=== PATIENT | female | born 1955 | race Caucasian/White ===

== ENCOUNTER → 2017-05-14 | Outpatient (CLI) | payer BC ==
--- NOTE | 2017-05-14 12:47 | RADIOLOGY REPORT (SQ) ---
EXAM DESCRIPTION: MRI LUMBAR SPINE WITHOUT COMPLETED DATE/TIME: 05/14/2017 12:07 pm REASON FOR STUDY: LUMBAR RADICULOPATHY (M54.17) M54.17 RADICULOPATHY, LUMBOSACRAL REGION COMPARISON: 01/11/2016. TECHNIQUE: Sagittal and Axial imaging includes T1, T2, STIR and gradient echo sequences. Coronal T2/ HASTE imaging. LIMITATIONS: None. FINDINGS: VISUALIZED UPPER ABDOMEN: Limited evaluation. No acute or suspicious findings suggested. SEGMENTATION: No transitional anatomy. The lowest well-developed disc space is labeled L5-S1. ALIGNMENT: Scoliosis, convex to the left. VERTEBRAE: Intact. BONE MARROW: Normal. No marrow replacement. Reactive endplate signal change at L2-L3. DISC SIGNAL: Decreased height and signal particularly in the lower thoracic and upper lumbar spine. POSTERIOR ELEMENTS: Generally intact. No pars defect evident. HARDWARE: None in the spine. CORD AND CONUS: Normal in size and signal intensity. Conus at the appropriate level. SOFT TISSUES: No aortic aneurysm seen. No bulky retroperitoneal adenopathy or mass. No paraspinal mas s or fluid. L1-L2: Mild diffuse posterior disc bulge and mild facet arthropathy. No significant spinal stenosis. Mild exit foraminal stenosis, worse on the right. L2-L3: Mild diffuse posterior bulge. Mild facet arthropathy. No significant spinal stenosis. Moder ate right exit foraminal stenosis. L3-L4: No significant disc bulge. Moderate facet arthropathy. Mild -moderate spinal stenosis and mi ld exit foraminal stenosis. L4-L5: Mild diffuse posterior bulge. Severe facet arthropathy. Moderate to severe spinal stenosis. Mild exit foraminal stenosis. L5-S1: No significant spinal stenosis or exit foraminal stenosis. LOWER THORACIC: Incompletely imaged. Right paracentral disc protrusion at T10-T11 with mild spinal s tenosis. Left paracentral disc protrusion at T11-T12 with moderate spinal stenosis and impingement o f the distal cord. SACRUM: Visualized upper sacrum intact. OTHER: No other significant findings. IMPRESSION: 1. SCOLIOSIS. MULTILEVEL CHRONIC DEGENERATIVE CHANGES DESCRIBED ABOVE. 2. DEGENERATIVE DISC DISEASE IN THE LOWER THORACIC SPINE WITH STENOSIS AND IMPINGEMENT, INCOMPLETELY IMAGED. 3. LITTLE CHANGE FROM PRIOR STUDY. NO ACUTE FINDINGS. TECHNICAL DOCUMENTATION: JOB ID: [id number]- All Rights Reserved
== END ==
LOC: RAD 11:06
PROVIDERS: ATTEND Family Medicine
DX: M54.17 Radiculopathy, lumbosacral region (principal)
CPT/HCPCS: 72148

== ENCOUNTER → 2018-04-15 | Outpatient (CLI) | payer BC ==
--- NOTE | 2018-04-15 10:15 | RADIOLOGY REPORT (SQ) ---
EXAM DESCRIPTION: MRI LUMBAR SPINE COMBO COMPLETED DATE/TIME: 04/15/2018 9:49 am REASON FOR STUDY: LUMBAR RADICULAR PAIN M54.16 RADICULOPATHY, LUMBAR REGION COMPARISON: MRI LUMBAR SPINE 05/06/2017, 01/11/2016 TECHNIQUE: Sagittal and Axial imaging includes T1, T1 post gadolinium, T2, STIR and gradient echo se quences. Coronal T2/HASTE imaging. CONTRAST TYPE AND DOSE: 15 mL Prohance. RENAL FUNCTION: GFR > 60. LIMITATIONS: None. FINDINGS: VISUALIZED UPPER ABDOMEN: Limited evaluation. No acute or suspicious findings suggested. SEGMENTATION: No transitional anatomy. The lowest well-developed disc space is labeled L5-S1. ALIGNMENT: There is convex leftward lumbar curvature. Very mild anterolisthesis of L4 over L5. VERTEBRAE: No compression fractures in the lumbar spine BONE MARROW: Fatty reactive vertebral body endplate changes at L1-2 and L2-3 DISC SIGNAL: Diffuse decreased T2 weighted intervertebral disc signal, with disc space loss of height at the L1-2 and L2-3 levels POSTERIOR ELEMENTS: Generally intact. No pars defect evident. There is facet arthropathy with syno vial enhancement at L3-4, L4-5, and L5-S1. HARDWARE: None in the spine. CORD AND CONUS: Normal in size and signal intensity. Conus at the L1 level. No abnormal conus enhanc ement SOFT TISSUES: No aortic aneurysm seen. No bulky retroperitoneal adenopathy or mass. No paraspinal mas s or fluid. T11-12: A small left paracentral disc herniation is present at T11-12, partly effacing the ventral t hecal sac and abutting the distal thoracic cord without cord flattening or abnormal intrinsic cord si gnal. Mild central canal narrowing. Moderate left foraminal narrowing without definite exit nerve r oot impingement. No right foraminal stenosis. These findings are stable. T12-L1: No significant central or foraminal encroachment. Mild bilateral facet hypertrophy L1-L2: Asymmetric rightward disc space loss of height is present. There is broad diffuse posterior d isc bulge and bulky bilateral facet hypertrophy right greater than left. Borderline central canal na rrowing. Moderate to high-grade right foraminal narrowing. No significant left foraminal narrowing. L2-L3: Disc space loss of height with broad diffuse disc bulge and bony spurring right greater than l eft. Moderate bilateral facet and ligament hypertrophy. Mild central canal narrowing. There is hig h-grade right and mild left foraminal narrowing. L3-L4: Mild to moderate central canal stenosis results from broad diffuse posterior disc bulge and marisa ny spurring along with bulky bilateral facet and ligament hypertrophy. This is best shown on axial T 2 image 21. Mild bilateral foraminal narrowing is present without exiting L3 nerve root impingement. L4-L5: Minimal grade 1 anterolisthesis of L4 over L5, broad diffuse posterior disc bulge and bony spu rring and very bulky bilateral facet and ligament hypertrophy is present. This causes moderate centr al canal stenosis best shown on axial T2 image 28. There is mild bilateral foraminal narrowing witho ut exit nerve root impingement. L5-S1: Minimal posterior disc bulging, mild bilateral facet hypertrophy. No significant central sten osis. Mild right foraminal narrowing. High-grade left foraminal narrowing results from asymmetric l eft foraminal and lateral disc bulge and bulky bony spurring best shown on sagittal T2 image 12. The re is enhancement of the left L5 nerve root. SACRUM: Visualized upper sacrum intact. ENHANCEMENT: Enhancing left L5 nerve root. Advanced facet arthropathy at L3-4, L4-5, and L5-S1 with facet synovial enhancement. OTHER: No other significant findings. IMPRESSION: Central canal stenosis most pronounced at L3-4 and L4-5. Advanced bilateral facet arthropathy at L3-4, L4-5, and L5-S1. High-grade multilevel foraminal narrowing as above TECHNICAL DOCUMENTATION: JOB ID: [id number] [employer]- All Rights Reserved Reading location - IP/workstation name: [email or web address]
== END ==
LOC: RAD 08:14
PROVIDERS: ATTEND Nurse Practitioner Family
DX: M54.16 Radiculopathy, lumbar region (principal)
CPT/HCPCS: 82565; 72158; A9576

== ENCOUNTER → 2018-06-21 | Outpatient (CLI) | payer BC ==
--- NOTE | 2018-06-21 12:39 | RADIOLOGY REPORT (SQ) ---
EXAM DESCRIPTION: L SPINE FLEX/EXT ONLY COMPLETED DATE/TIME: 06/21/2018 12:26 pm REASON FOR STUDY: OTHER SPONDYLOSIS WITH RADICULOPATHY, LUMBOSACRAL REGION M47.27 OTHER SPONDYLOSIS WITH RADICULOPATHY, LUMBOSACRAL REG COMPARISON: None. NUMBER OF VIEWS: Two view. TECHNIQUE: Lateral views of the lumbar spine with flexion and extension. LIMITATIONS: None. FINDINGS: MINERALIZATION: Normal. SEGMENTATION: Normal. No transitional anatomy. ALIGNMENT: Grade 1 anterolisthesis of L 4 on L5. FLEXION/EXTENSION: No instability. VERTEBRAE: Maintained height. No fracture or worrisome bone lesion. DISCS: Multilevel disc space narrowing with osteophytes. POSTERIOR ELEMENTS: Pedicles and facets are intact. Facet arthropathy. No pars defect or posterior arch defects. HARDWARE: None in the spine. OTHER: No other significant finding. IMPRESSION: MULTILEVEL DEGENERATIVE CHANGES. GRADE 1 ANTEROLISTHESIS OF L 4 ON L5. NO INSTABILITY ON FLEXION/EXTENSION. TECHNICAL DOCUMENTATION: JOB ID: [id number] [employer]- All Rights Reserved Reading location - IP/workstation name: [email or web address]
--- NOTE | 2018-06-21 12:41 | RADIOLOGY REPORT (SQ) ---
EXAM DESCRIPTION: L SPINE 2 VIEWS COMPLETED DATE/TIME: 06/21/2018 12:26 pm REASON FOR STUDY: OTHER SPONDYLOSIS WITH RADICULOPATHY, LUMBOSACRAL REGION M47.27 OTHER SPONDYLOSIS WITH RADICULOPATHY, LUMBOSACRAL REG COMPARISON: None. NUMBER OF VIEWS: Two views. TECHNIQUE: AP and lateral radiographic images acquired of the lumbar spine. LIMITATIONS: None. FINDINGS: MINERALIZATION: Normal. SEGMENTATION: Normal. No transitional anatomy. ALIGNMENT: Marked scoliosis, convex to the left. Grade 1 anterolisthesis of L4 on L5. VERTEBRAE: Maintained height. No fracture or worrisome bone lesion. DISCS: Multilevel disc space narrowing with osteophytes. POSTERIOR ELEMENTS: Pedicles and facets are intact. Facet arthropathy. No pars defect or posterior arch defects. HARDWARE: None in the spine. PARASPINAL SOFT TISSUES: Normal. PELVIS: Intact as visualized. No fractures or worrisome bone lesions. SI joints intact. OTHER: No other significant finding. IMPRESSION: MULTILEVEL DEGENERATIVE DISC DISEASE AND FACET ARTHROPATHY. MARKED SCOLIOSIS. GRADE 1 ANTEROLISTHESIS OF L 4 ON L5. TECHNICAL DOCUMENTATION: JOB ID: [id number]- All Rights Reserved Reading location - IP/workstation name: [email or web address]
== END ==
LOC: RAD 11:49
PROVIDERS: ATTEND Physician Assistant
DX: M47.27 Other spondylosis with radiculopathy, lumbosacral region (principal)
CPT/HCPCS: 72100; 72120

== ENCOUNTER → 2018-11-01 | Outpatient (CLI) | payer BC ==
[2018-11-01 11:34] LABS: ALANINE AMINOTRANSFERASE 20 U/L (9-52); ALBUMIN 4.7 g/dL (3.5-5.0); ALKALINE PHOSPHATASE 110 U/L (38-126); ANION GAP 9 (5-19); ASPARTATE AMINO TRANSFERASE 27 U/L (14-36); BILIRUBIN,DIRECT 0.3 mg/dL (0.0-0.4); BILIRUBIN,TOTAL 0.4 mg/dL (0.2-1.3); BLOOD UREA NITROGEN 18 mg/dL (7-20); CARBON DIOXIDE 31 mmol/L (22-30); CHLORIDE 101 mmol/L (98-107); GLUCOSE 85 mg/dL (75-110); POTASSIUM 4.8 mmol/L (3.6-5.0); SODIUM 140.9 mmol/L (137-145); TOTAL PROTEIN 7.3 g/dL (6.3-8.2)
[2018-11-01 11:44] LABS: FREE T3 3.44 pg/mL (2.77-5.27); FREE T4 (FREE THYROXINE) 0.9 ng/dL (0.78-2.19)
[2018-11-01 11:58] LABS: THYROID STIMULATING HORMONE 2.19 uIU/mL (0.47-4.68)
== END ==
LOC: OD 09:23
PROVIDERS: ATTEND Family Medicine
DX: E78.5 Hyperlipidemia, unspecified (principal); E03.9 Hypothyroidism, unspecified; I10 Essential (primary) hypertension; E88.81 Metabolic syndrome and other insulin resistance
CPT/HCPCS: 36415; 80048; 80076; 83036; 84439; 84443; 84481

== ENCOUNTER 2018-11-03 10:20 | Day surgery (SDC) | payer BC ==
[2018-11-01 11:08] LABS: HEMATOCRIT 41.5 % (36.0-47.0); HEMOGLOBIN 14.1 g/dL (12.0-15.5); MEAN CORPUSCULAR HEMOGLOBIN 29.3 pg (27.0-33.4); MEAN CORPUSCULAR VOLUME 86 fl (80-97); PLATELET COUNT 209 10^3/uL (150-450); RED BLOOD COUNT 4.82 10^6/uL (3.72-5.28); RED CELL DISTRIBUTION WIDTH 13.4 % (11.5-14.0); WHITE BLOOD COUNT 5.9 10^3/uL (4.0-10.5)
[2018-11-01 11:35] LABS: ANION GAP 9 (5-19); BLOOD UREA NITROGEN 18 mg/dL (7-20); CARBON DIOXIDE 31 mmol/L (22-30); CHLORIDE 101 mmol/L (98-107); GLUCOSE 85 mg/dL (75-110); POTASSIUM 4.8 mmol/L (3.6-5.0); SODIUM 140.9 mmol/L (137-145)
--- NOTE | 2018-11-01 12:34 | RADIOLOGY REPORT (SQ) ---
EXAM DESCRIPTION: CHEST PA/LATERAL COMPLETED DATE/TIME: 11/01/2018 10:31 am REASON FOR STUDY: PRE-OP COMPARISON: None. EXAM PARAMETERS: NUMBER OF VIEWS: two views TECHNIQUE: Digital Frontal and Lateral radiographic views of the chest acquired. RADIATION DOSE: NA LIMITATIONS: none FINDINGS: LUNGS AND PLEURA: Mild linear atelectasis in the right middle lobe. MEDIASTINUM AND HILAR STRUCTURES: No masses or contour abnormalities. HEART AND VASCULAR STRUCTURES: Heart normal size. No evidence for failure. BONES: No acute findings. HARDWARE: None in the chest. OTHER: No other significant finding. IMPRESSION: NO SIGNIFICANT RADIOGRAPHIC FINDING IN THE CHEST. TECHNICAL DOCUMENTATION: JOB ID: [id number] [employer]- All Rights Reserved Reading location - IP/workstation name: [email or web address]
--- NOTE | 2018-11-02 00:09 | EKG REPORT ---
SEVERITY:- BORDERLINE ECG - SINUS RHYTHM PROBABLE LEFT ATRIAL ABNORMALITY : Confirmed by: Saji Ruiz 02-Nov-2018 00:09:08
[~2018-11-03 10:20] MED LIST: CEFAZOLIN 1 GM/D5W RTU 1 GM/50 ML RTUPB IV PRN; LACTATED RINGERS 1000 ML IV PRN; LIDOCAINE 0.5% INJ-PF (5 MG/ML) 50 ML SDV SUBCUT PRN
--- NOTE | 2018-11-03 13:14 | RADIOLOGY REPORT (SQ) ---
EXAM DESCRIPTION: NM LYMPHATICS/LYMPH GLANDS COMPLETED DATE/TIME: 11/03/2018 1:05 pm REASON FOR STUDY: RT KNEE MELANOMA C43.71 MALIGNANT MELANOMA OF RIGHT LOWER LIMB, INCLUDING HIP COMPARISON: None. RADIONUCLIDE AND DOSE: 532 microcuries TC-99m tilmanocept - [employer]. The route of agent administration: Subcutaneous in the skin. TECHNIQUE: The skin of the right leg was prepped in sterile fashion. The radiopharmaceutical was ad ministered adjacent to the site of the skin lesion. LIMITATIONS: None. FINDINGS: Images demonstrate activity at the injection site. IMPRESSION: ADMINISTRATION OF RADIOPHARMACEUTICAL FOR SENTINEL LYMPH NODE EVALUATION. TECHNICAL DOCUMENTATION: JOB ID: [id number] [employer]- All Rights Reserved Reading location - IP/workstation name: [email or web address]
[2018-11-03] MEDS ORDERED: DEXAMETHASONE SOD PHOSPHATE INJ 4 MG/1 ML VIAL ONE (13:39)
[2018-11-03] MEDS ORDERED: ONDANSETRON HCL INJ/PF 4 MG/2 ML SDV ONE (13:39)
[2018-11-03] MEDS ORDERED: KETOROLAC TROMETHAMINE 60 MG/2 ML SDV ONE (13:39)
--- NOTE | 2018-11-03 15:18 | Discharge Summary ---
Discharge Summary (SDC) - Discharge Final Diagnosis: melanoma on right knee Date of Surgery: 11/03/18 Discharge Date: 11/03/18 Condition: Good Treatment or Instructions: WOUND CARE: 1) Leave knee brace in place as often as possible. Avoid bending knee. 2) Do not shower for 48 hours. Leave dressing intact until you shower. At that time you may remove outer dressing (gauze and laura wrap) but leave skin glue intact. You may wash the wound with warm water and soap, pat dry, cover if needed. Do not scrub the area. The skin glue will fall off on its own. If you are more comfortable you may re apply gauze and laura wrap before wearing brace. You may also cover the lower abdominal incision with gauze and tape for comfort. 3) Monitor the area for signs of infection: redness, increased drainage, increased pain, fever, chills. PAIN MANAGEMENT: 1) You may take Ultram 50mg one pill by mouth every six hours as needed for pain. Do not take additional NSAIDs while taking Toradol. FOLLOW UP: 1) You may follow up at [facility] in 7-10 days. Call clinic sooner with questions/concerns. Prescriptions: Tramadol HCl [Ultram 50 mg Tablet] 50 mg PO Q6HP PRN #20 tab PRN Reason: Referrals: KARLOS LEGGETT MD [Primary Care Provider] - JOVANNA LESLIE MD [ACTIVE STAFF] - 11/11/18 2:45 pm Discharge Diet: As Tolerated Discharge Activity: Balance Activity w/Rest, Walk Frequently Report the Following to Your Physician Immediately: Increase in Pain, Fever over 101 Degrees, Unusual Bleeding, Redness, Swelling, Warmth, Drainage-Foul Smelling
[2018-11-03] MEDS ORDERED: ACETAMINOPHEN 1,000 MG/100 ML RTUPB IV ONE (15:19)
[2018-11-03] MEDS ORDERED: MIDAZOLAM 2 MG/2 ML INJ ONE (15:19)
[2018-11-03] MEDS ORDERED: HYDROMORPHONE HCL INJ/PF 2 MG/ML AMPULE ONE (15:19)
[2018-11-03] MEDS ORDERED: PROPOFOL INJ 200 MG/20 ML VIAL IV ONE (15:19)
[2018-11-03] MEDS ORDERED: METHYLENE BLUE 50 MG/10 ML AMPULE ONE (15:36)
[2018-11-03] MEDS ORDERED: MICROFIBRILLAR COLLAGEN 1 GM PACK ONE (15:36)
[2018-11-03] MEDS ORDERED: LIDOCAINE 1%/EPINEPHRINE INJ 20 ML VIAL ONE (15:36)
[2018-11-03] MEDS ORDERED: FENTANYL CITRATE INJ/PF 100 MCG/2 ML AMPUL IV PRN ×3 (16:10)
[2018-11-03] MEDS ORDERED: PROMETHAZINE HCL INJ 25 MG/1 ML VIAL IV PRN (16:10)
[2018-11-03] MEDS ORDERED: ONDANSETRON HCL INJ/PF 4 MG/2 ML SDV IV PRN (16:10)
[2018-11-03] MEDS ORDERED: DIPHENHYDRAMINE HCL 50 MG/ML VIAL IV PRN (16:10)
[2018-11-03] MEDS ORDERED: MORPHINE SULFATE 10 MG/ML INJ IV PRN (16:10)
[2018-11-03] MEDS ORDERED: MEPERIDINE HCL/PF INJ 25 MG/1 ML DISP.SYRIN IV PRN (16:10)
[2018-11-03] MEDS ORDERED: OXYCODONE-ACETAMINOPHEN 5-325 MG TABLET PO PRN (17:25)
[2018-11-03 19:14] VITALS: BP 139/99
--- NOTE | 2018-11-10 09:28 | Operative Report ---
Operative Report DATE OF SURGERY: 11/03/18 PREOPERATIVE DIAGNOSIS: Intermediate thickness melanoma right lateral knee POSTOPERATIVE DIAGNOSIS: Same OPERATION: 1. Excision of right lateral knee melanoma primary closure. 2. [employer] lymph node biopsy x2 right retro-peritoneal supra inguinal lymph nodes SURGEON: JOVANNA CARDENAS CINDER CRANE OPERATOR: BERNARDA BRO ANESTHESIA: GA TISSUE REMOVED OR ALTERED: [employer] lymph nodes x2; wide excision of right melanoma of the knee COMPLICATIONS: None ESTIMATED BLOOD LOSS: Minimal INTRAOPERATIVE FINDINGS: See below PROCEDURE: Patient was seen in the preop holding area with the right leg was marked. Bedside neoprobe scanning of the right groin demonstrated creased activity above the right inguinal ligament. There was no activity in the left inguinal ligament back neck or axilla. The patient was taken to the main operating room where general anesthesia was LMA. Right groin clipped of hair, then right groin and entire right leg, with the right foot isolated, prepped and draped in sterile fashion. We injected methylene blue approximately 2 and half cc in a circumferential fashion, intradermally around the previously shaved biopsy of the right lateral knee melanoma site. The right knee was massaged. Surgical plan and surgical timeout were conducted. We performed the sentinel lymph node biopsy first. The activity via neoprobe in the right groin was above the inguinal ligament. The skin was anesthetized with 1% plain lidocaine; a small transverse incision was made over the right lower quadrant, and using electrocautery, and S retractors, the subcutaneous tissue was divided. A superficial vein was encountered and doubly ligated and divided. Elia's fascia was divided. We continued to have activity coming from the deeper tissues so the external oblique aponeurosis was opened along the direction of its fibers for approximately 3-1/2 cm. The internal oblique, and transversalis fascia was similarly divided. We now had the retroperitoneal fat exposed. Using our neoprobe as a guide, we identified the first sentinel lymph node. The in vivo count was 7247 the ex vivo count was 2279. It was marked is a right supra inguinal, retroperitoneal lymph node. It was blue and hot. We now spent a fair amount of time harvesting the sentinel right suprainguinal lymph node. It too was blue and hot with an in vivo count of 2368 and an ex vivo count of 2221. It was sent as sentinel lymph node #2. Now the background counts were negligible and we felt that the sentinel lymph node portion of the seizure was complete. We now approach to the right lateral knee melanoma. The patient was rotated to the left side. For wide excision, we chose approximately 2 cm margin cephalad and caudad, and a 3 cm margin medially and laterally to orient the ellipse of resection in a horizontal fashion. The skin was anesthetized with 1% plain lidocaine. The skin was excised in elliptical fashion with a #[address] the way down to the fascia. A small superficial vein was cauterized as encountered. The ellipse of skin was taken off the field, and marked with a short silk suture in the 12 o'clock position and a long suture in the left permanent analysis is right lateral knee. The superior and inferior tissue flaps were now undermined with electrocautery. We now closed the wide excision site with multiple interrupted 2-0 Vicryl sutures, the dermis with a running 3-0 Vicryl suture. Dog ears were minimal. The right groin wound was closed in layers with the internal and external oblique fascia closed with multiple interrupted [id number] 0 Vicryl sutures. Elia's fascia and skin closed with a 3-0 Vicryl suture. The right suprainguinal incision and right knee incision both closed with Dermabond glue. Padding was placed around the right lateral knee incision, immobilizer was positioned. Patient tolerated the procedure well, extubated, taken to recovery room in stable condition. The physician tv production assistant, Ms. Alcala, provided assistance during this case by: Assisting with retracting tissue, instillation of local anesthesia and closure of skin incisions.
== END 2018-11-03 19:15 | disposition home or self-care (01) ==
LOC: OROUT 10:20
PROVIDERS: ATTEND Surgery
DX: C43.71 Malignant melanoma of right lower limb, including hip (principal); I10 Essential (primary) hypertension; E03.9 Hypothyroidism, unspecified; F41.9 Anxiety disorder, unspecified; F17.210 Nicotine dependence, cigarettes, uncomplicated; Z79.899 Other long term (current) drug therapy; Z79.1 Long term (current) use of non-steroidal anti-inflammatories (NSAID); Z88.5 Allergy status to narcotic agent
CPT/HCPCS: 93005; 36415 ×2; 84132; 85027; 80048; 88342 ×2; 88341 ×2; 88305 ×2; 88307 ×2; 71046; 78195; 93010; 38531; 27337; L1830; A9520; J2250; J1100; J1885; J3490; J1170; J2405; J2704; J0131; Q9968; 400